=== PATIENT | male | born 1970 | race Two or more races ===

== ENCOUNTER 2025-01-15 18:55 | Emergency (ER) | payer MEDICAID, SELFPAY ==
[2025-01-15 19:42] VITALS: BP 151/80; PULSE 77; RESP 18; TEMP 37.1; O2SAT 97; BMI 30.4
--- NOTE | 2025-01-15 20:05 | EDNOTE_ITS ---
ED Back Injury Pain RME/HPI General Chief Complaint: Back Pain/Injury Stated Complaint: Middle back pain X2 days Time Seen by Provider: 01/15/25 20:00 Arrival date/time: 01/15/25 18:55 54M with history of HTN presents to ED with mid-back pain for several days. Patient denies fall/trauma, CP, ab, SOB, dysuria/hematuria, and N/V. Patient states he went to chiropractor, which made it worse. Patient took some Tylenol, which helped a bit. Limitations: no limitations Related Data Allergies Allergy/AdvReac Type Severity Reaction Status Date / Time No Known Allergies Allergy Unverified 01/15/25 20:02 Review of Systems Review of Systems Systems Reviewed: All systems reviewed, normal except as documented Constitutional Constitutional: Reports system reviewed and no additional complaints, except as documented, Denies fever(s) and Denies headache(s) ENT Ears, Nose, Mouth, and Throat: Denies disequilibrium and Denies headache(s) Cardiovascular Cardiovascular: Reports system reviewed and no additional complaints, except as documented, Denies chest pain and Denies dyspnea Respiratory Respiratory: Reports system reviewed and no additional complaints, except as documented, Denies cough and Denies dyspnea Gastrointestinal Gastrointestinal: Reports system reviewed and no additional complaints, except as documented, Denies abdominal pain, Denies nausea and Denies vomiting Musculoskeletal Musculoskeletal: Reports as per HPI and Reports back pain Neurologic Neurologic: Reports system reviewed and no additional complaints, except as documented, Denies confusion, Denies disequilibrium and Denies headache(s) Psychiatric Psychiatric: Denies confusion Past Medical History Past Medical History CARDIAC: Positive Hypertension Social History SMOKING STATUS: Never smoker ED Exam General Limitations: Present no limitations General appearance: Present alert and in no apparent distress Head Head exam: Present atraumatic Eye Eye exam: Present normal appearance, PERRL and EOMI ENT ENT exam: Present normal exam, normal oropharynx and mucous membranes moist Neck Neck exam: Present normal inspection, full ROM and trachea midline Chest Chest inspection: Present normal inspection and symmetric chest wall rise Respiratory Respiratory exam: Present normal lung sounds bilaterally Cardiovascular Cardiovascular exam: Present regular rate, normal rhythm and normal heart sounds Abdominal Exam Abdominal exam: Present soft and normal bowel sounds Extremities Exam Extremities exam: Present normal inspection and full ROM Back Exam Back exam: Present full ROM and tenderness (mid back) Neurological Exam Neurological exam: Present alert, oriented X3 and CN II-XII intact Psychiatric Psychiatric exam: Present normal affect and normal mood Skin Skin exam: Present warm, dry, intact and normal color Course Quality Measures none Orders Category Date Time Status CYCLObenzaPRINE [Flexeril] Med 01/15/25 20:02 Discontinued 5 mg PO X1 ONE Naproxen [Naprosyn] Med 01/15/25 20:02 Discontinued 500 mg PO X1 ONE Vital Signs Vital signs: Vital Signs Temperature 98.8 F 01/15/25 19:42 Pulse Rate 77 01/15/25 19:42 Respiratory Rate 18 01/15/25 19:42 Blood Pressure 151/80 H 01/15/25 19:42 Pulse Oximetry (%) 97 01/15/25 19:42 Oxygen Delivery Method Room Air 01/15/25 19:42 O2 at 97% on RA and WNLs Back Pain / Injury MDM Narrative MDM Narrative:: 54M with history of HTN presents to ED with mid-back pain for several days. Patient denies fall/trauma, CP, ab, SOB, dysuria/hematuria, and N/V. Patient states he went to chiropractor, which made it worse. Patient took some Tylenol, which helped a bit. Physical exam reveals no mid-back tenderness. Normal WOB. Extremities ROM and strength equal and normal. Gait normal. Patient is afebrile, calm, and alert. Likely MSK-in nature. Meds and diet counselor given. Patient data External records reviewed:: None Clinical information provided by:: patient Social determinants that could affect healthcare access:: none Patient has the following chronic illnesses:: HTN How is presenting disease/condition affected by chronic disease/condition?: uneffected by Evaluation data The following diagnostics were reviewed and interpreted by me:: other (specify) (none) Lab and/or radiology exams considered but not ordered:: not ordered Interpretation Summary: n/a Medications / Prescriptions Medications or Prescriptions considered but not ordered:: ordered Medication administrations:: Medication Administration History Discontinued Medications Cyclobenzaprine HCl (Cyclobenzaprine 5 Mg Tablet) 5 mg PO X1 ONE Stop: 01/15/25 20:03 Naproxen (Naproxen 250 Mg Tablet) 500 mg PO X1 ONE Stop: 01/15/25 20:03 above Consultations Consultation(s) initiated? (list below): No Diagnosis Differential diagnosis back pain/injury: lumbar radiculopathy, sciatica, strain of lumbar region, renal colic, pyelonephritis, thoracic back pain, AAA and discitis Most likely diagnosis given after review of the tests above:: back pain Admission Indicated Admission indicated?: not indicated Admission Request Was there a request for admission?: No Disposition Plan Disposition Plan: Discharge Discharge Attestation Discharge Attestation: The patient and all family members were given an opportunity to ask questions and understood the discharge instructions. Discharge instructions specifically effects, indications for sooner follow up or return to the emergency department, and the expected course of current diagnosis. Patient condition: Stable Discharge Plan Plan Patient Disposition: HOME (Self Care) Discharge Disposition comment: Stable Problem List Clinical Impression: Back pain Patient/Caregiver Discharge Instructions Education Materials: ED Back Pain (Acute or Chronic) Additional Instructions: Please follow-up with PCP within 24-48 hours and return immediately if symptoms worsen. If problem persists, recommend outpatient PT and/or MRI follow-up. In the meantime, rest, use ice/heat, and/or compression. NSAIDs like ibuprofen tend to work better for this type of pain. Print Language: Pashto Stand Alone Forms: Patient Portal Info Letter ANGELA/OMAR Supervising Physician ANGELA/OMAR Supervising Physician: Dr. Cook
[2025-01-15] MEDS: NAPROXEN 250 MG TABLET 500 MG PO (20:07)
== END 2025-01-15 20:09 | disposition home or self-care (01) ==
PROVIDERS: Emergency Provider Emergency Medicine; PCP Physician Assistant
DX: M54.9 Dorsalgia, unspecified (principal); I10 Essential (primary) hypertension
CPT/HCPCS: 99283; A9270